=== PATIENT | female | born 1985 | race Two or more races ===

== ENCOUNTER 2022-12-13 14:00 | Emergency (ER) | payer SELFPAY ==
[2022-12-13] MEDS ORDERED: Sodium Chloride 0.9% 1,000 ML IV STA (15:29)
[2022-12-13] MEDS ORDERED: Ondansetron 4 MG/2 ML SDV IVPUSH STA (15:29)
[2022-12-13 16:21] LABS: CARBON DIOXIDE,CO2 25.3 mmol/L (21.0-32.0); POTASSIUM,K 4.2 mmol/L (3.5-5.1)
[2022-12-13] MEDS ORDERED: Ketorolac 30 MG/ML SDV IVPUSH STA (16:45)
[2022-12-13 17:37] LABS: CORONAVIRUS COVID-19 NAA NEGATIVE (NEGATIVE); INFLUENZA A NAA NEGATIVE (NEGATIVE); INFLUENZA B NAA NEGATIVE (NEGATIVE)
[2022-12-13] MEDS ORDERED: Morphine 2 MG/ML SYRINGE IVPUSH STA (18:21)
== END 2022-12-13 19:08 | disposition home or self-care (01) ==
LOC: MW.ED 14:00
DX: R10.11 Right upper quadrant pain (principal); M32.9 Systemic lupus erythematosus, unspecified; D72.819 Decreased white blood cell count, unspecified; F17.210 Nicotine dependence, cigarettes, uncomplicated; Z88.8 Allergy status to other drugs, medicaments and biological substances; Z20.822 Contact with and (suspected) exposure to COVID-19
CPT/HCPCS: 0240U; 36415; 71045; 76705; 80053; 81001; 83735; 85025; 85652; 86140; 96361; 96374; 96375; 99285; J1885; J2270; J2405; J7030; 99284

== ENCOUNTER 2023-01-07 23:04 | Emergency (ER) | payer SELFPAY ==
[2023-01-07] MEDS ORDERED: Aspirin 81 MG Tab.EC PO ONE (23:24)
[2023-01-07] MEDS ORDERED: Aspirin 81 MG Tab.Chew ONE (23:27)
[2023-01-07] MEDS ORDERED: Aspirin 81 MG Tab.Chew PO ONE (23:28)
[2023-01-07 23:49] LABS: CARBON DIOXIDE,CO2 22.8 mmol/L (21.0-32.0); POTASSIUM,K 3.7 mmol/L (3.5-5.1)
[2023-01-08 00:17] LABS: CORONAVIRUS COVID-19 NAA NEGATIVE (NEGATIVE); INFLUENZA A NAA NEGATIVE (NEGATIVE); INFLUENZA B NAA NEGATIVE (NEGATIVE)
[2023-01-08] MEDS ORDERED: Morphine 2 MG/ML SYRINGE IVPUSH ONE (00:22)
[2023-01-08] MEDS ORDERED: Morphine 4 MG/ML Syringe IVPUSH ONE (00:51)
[2023-01-08] MEDS ORDERED: Iopamidol 755 MG/ML 500 ML Multipack Bottle IVPUSH ONE (01:41)
== END 2023-01-08 03:04 | disposition home or self-care (01) ==
LOC: MW.ED 23:04
DX: R07.89 Other chest pain (principal); Z72.0 Tobacco use; Z88.8 Allergy status to other drugs, medicaments and biological substances; Z20.822 Contact with and (suspected) exposure to COVID-19
CPT/HCPCS: 0240U; 36415; 71045; 71275; 80053; 83690; 83880; 84484; 84703; 85025; 93005; 96374; 96375; 96376; 99285; A9270; J2270; J3360; Q9967; 93010; 99284

== ENCOUNTER 2023-05-21 01:01 | Emergency (ER) | payer SELFPAY | END 2023-05-21 03:17 | disposition home or self-care (01) | LOC: MW.ED 01:01 | DX: M32.9 Systemic lupus erythematosus, unspecified (principal); Z88.8 Allergy status to other drugs, medicaments and biological substances | CPT/HCPCS: 99283 ==

== ENCOUNTER 2023-07-21 09:37 | Emergency (ER) | payer SELFPAY ==
[2023-07-21] MEDS ORDERED: Sodium Chloride 0.9% 2.5 ML Syringe FLUSH PRN (10:10)
[2023-07-21] MEDS ORDERED: Sodium Chloride 0.9% 10 ML Syringe FLUSH PRN (10:10)
[2023-07-21 10:17] LABS: BASOPHILS PERCENT AUTO 0.2 % (0.0-1.5); EOSINOPHILS PERCENT AUTO 0.2 % (0.0-7.0); HEMATOCRIT 38.7 % (36.0-46.0); LYMPHOCYTES PERCENT AUTO 21.6 % (16.0-40.0); MEAN CORPUSCULAR HEMOGLOBIN 30.2 pg (27.0-32.0); MEAN CORPUSCULAR HGB CONC 33.6 g/dL (31.0-37.0); MEAN CORPUSCULAR VOLUME 89.8 fL (80.0-98.0); MONOCYTES ABSOLUTE AUTO 0.4 K/uL (0.0-0.8); MONOCYTES PERCENT AUTO 9.8 % (0.0-15.0); NEUTROPHILS ABSOLUTE AUTO 3.1 K/uL (1.4-5.7); NEUTROPHILS PERCENT AUTO 68.2 % (48.0-80.0); NRBC ABSOLUTE 0 K/uL; PLATELET COUNT,PLT 241 K/uL (150-400); RED BLOOD CELL COUNT 4.31 M/uL (4.30-5.90)
[2023-07-21] MEDS ORDERED: Sodium Chloride 0.9% 1,000 ML IV STA (10:21)
[2023-07-21] MEDS ORDERED: Ondansetron 4 MG/2 ML SDV IVPUSH STA (10:21)
[2023-07-21] MEDS ORDERED: Ketorolac 30 MG/ML SDV IVPUSH STA (10:21)
[2023-07-21] MEDS ORDERED: Acetaminophen 500 MG Tab PO STA (10:21)
[2023-07-21 10:32] LABS: A/G RATIO 0.9 (0.9-1.6); ALBUMIN 3.5 g/dL (3.4-5.0); BILIRUBIN TOTAL 0.3 mg/dL (0.2-1.0); CALCIUM 8.6 mg/dL (8.5-10.1); CARBON DIOXIDE,CO2 22.2 mmol/L (21.0-32.0); CREATININE 0.7 mg/dL (0.6-1.0); EST CRCL DRUG DOSING (CG) 79.04 mL/min; POTASSIUM,K 4.1 mmol/L (3.5-5.1); PROTEIN TOTAL,TP 7.3 g/dL (6.4-8.2)
[2023-07-21 10:36] LABS: MAGNESIUM 1.4 mg/dL (1.8-2.4)
[2023-07-21] MEDS ORDERED: Magnesium Sulfate/Water 2 GM in Premix Bag 1 BAG IV STA (10:41)
== END 2023-07-21 12:19 | disposition home or self-care (01) ==
LOC: MW.ED 09:37
DX: U07.1 COVID-19 (principal); E83.42 Hypomagnesemia; Z79.899 Other long term (current) drug therapy; Z88.8 Allergy status to other drugs, medicaments and biological substances
CPT/HCPCS: 36415; 71046; 80053; 83690; 83735; 84484; 85025; 86308; 87635; 87651; 93005; 96361; 96365; 96375; 99285; A9270; J1885; J2405; J3475; J3490; J7030; 93010; 99284; U0002

== ENCOUNTER 2023-10-19 14:05 | Emergency (ER) | payer SELFPAY ==
[2023-10-19] MEDS ORDERED: Sodium Chloride 0.9% 2.5 ML Syringe FLUSH PRN (15:01)
[2023-10-19] MEDS ORDERED: Ondansetron 4 MG/2 ML SDV IVPUSH STA (15:01)
[2023-10-19] MEDS ORDERED: Sodium Chloride 0.9% 1,000 ML IV STA ×2 (15:01→16:58)
[2023-10-19] MEDS ORDERED: Sodium Chloride 0.9% 10 ML Syringe FLUSH PRN (15:01)
[2023-10-19] MEDS ORDERED: Ketorolac 30 MG/ML SDV IVPUSH STA (15:01)
[2023-10-19 15:29] LABS: HEMATOCRIT 36.9 % (37.0-47.0); HEMOGLOBIN 12.7 g/dL (12.0-16.0); MEAN CORPUSCULAR HGB CONC 34.4 g/dL (32.0-36.0); MEAN CORPUSCULAR VOLUME 92.9 fL (83.0-99.0); MEAN PLATELET VOLUME 10.6 fL (9.4-12.3); PLATELET COUNT,PLT 189 K/uL (150-400); RED BLOOD CELL COUNT 3.97 M/uL (4.10-5.30); WHITE BLOOD CELL COUNT,WBC 2.91 K/uL (3.9-11.3)
[2023-10-19] MEDS ORDERED: Lidocaine 1% PF 2 ML SDV INJECT STA (15:53)
[2023-10-19] MEDS ORDERED: Bupivacaine 0.25% 10 ML SDV INJECT STA (15:53)
[2023-10-19 15:57] LABS: A/G RATIO 0.8 (0.9-1.6); ALBUMIN 3.5 g/dL (3.4-5.0); BILIRUBIN TOTAL 1.3 mg/dL (0.2-1.0); CALCIUM 8.2 mg/dL (8.5-10.1); CARBON DIOXIDE,CO2 19.5 mmol/L (21.0-32.0); CREATININE 0.8 mg/dL (0.6-1.0); EST CRCL DRUG DOSING (CG) 68.49 mL/min; POTASSIUM,K 3.5 mmol/L (3.5-5.1); PROTEIN TOTAL,TP 7.8 g/dL (6.4-8.2)
[2023-10-19 16:21] LABS: GLUCOSE,URINE NEGATIVE (NEGATIVE); KETONES,URINE TRACE mg/dL (NEGATIVE); LEUKOCYTE ESTERASE,URINE NEGATIVE (NEGATIVE); NITRITE,URINE POSITIVE (NEGATIVE); OCCULT BLOOD,URINE MODERATE (NEGATIVE); PH,URINE 5.5 (5.0-8.0); PROTEIN,URINE >=300 mg/dL (NEGATIVE)
[2023-10-19] MEDS ORDERED: Morphine 4 MG/ML Syringe IVPUSH STA ×2 (16:27→17:20)
[2023-10-19 16:35] LABS: EOSINOPHILS ABSOLUTE MAN 0.03 K/uL (0.00-0.45); EOSINOPHILS PERCENT MAN 1 % (0-6); LYMPHOCYTES PERCENT MAN 24 % (24-44); SEG NEUTROPHILS ABSOLUTE MAN 2.18 K/uL (1.80-7.70); SEG NEUTROPHILS PERCENT MAN 75 % (41-71)
[2023-10-19 16:40] LABS: APPEARANCE,URINE CLOUDY; BILIRUBIN,URINE MODERATE (NEGATIVE); COLOR,URINE AMBER
[2023-10-19 16:41] LABS: BACTERIA,URINE 2+ (NEGATIVE); EPITHELIAL CELLS,URINE FEW (NONE-FEW)
[2023-10-19 16:42] LABS: AMORPHOUS SEDIMENT,URINE MODERATE (NEGATIVE); FINE GRANULAR CASTS,URINE 15-20 (NEGATIVE)
[2023-10-19] MEDS ORDERED: Piperacillin/Tazobactam 3.375 GM in Sodium Chloride 0.9% 100 ML IV STA (16:42)
[2023-10-19 16:54] LABS: ACETAMINOPHEN 52.5 ug/mL
[2023-10-19 17:06] LABS: PERCENT FE SATURATION 28.67 % (20-55)
[2023-10-19] MEDS ORDERED: Iopamidol 755 MG/ML 200 ML Multipack Bottle IVPUSH STA (17:17)
[2023-10-19] MEDS ORDERED: Iopamidol 755 MG/ML 500 ML Multipack Bottle IVPUSH STA (17:21)
[2023-10-19 17:38] LABS: INR 1.32 (0.86-1.11)
[2023-10-19] MEDS ORDERED: WATER IV STA ×2 (17:39)
[2023-10-19] MEDS ORDERED: DEXTROSE 5% IV STA ×2 (17:39)
[2023-10-19] MEDS ORDERED: ACETYLCYSTEINE IV STA ×2 (17:39)
[2023-10-19 17:40] LABS: ETHANOL BLOOD MEDICAL < 3.0 mg/dL
[2023-10-19] MEDS ORDERED: FOMEPIZOLE IV STA ×2 (17:50→17:53)
[2023-10-19] MEDS ORDERED: SODIUM CHLORIDE 0.9% IV STA ×2 (17:50→17:53)
[2023-10-19] MEDS ORDERED: DEXTROSE 5% IV ONE ×6 (18:25→23:50)
[2023-10-19] MEDS ORDERED: ACETYLCYSTEINE IV ONE ×6 (18:25→23:50)
[2023-10-19] MEDS ORDERED: WATER IV ONE ×6 (18:25→23:50)
[2023-10-19] MEDS ORDERED: Ondansetron 4 MG/2 ML SDV IVPUSH ONE (19:45)
[2023-10-19] MEDS ORDERED: LORazepam 2 MG/ML SDV IVPUSH STA (20:42)
[2023-10-19] MEDS ORDERED: Prochlorperazine 10 MG/2 ML SDV IVPUSH STA (23:24)
[2023-10-19] MEDS ORDERED: diphenhydrAMINE 50 MG/ML SDV IVPUSH STA ×2 (23:24→23:26)
== END 2023-10-19 23:58 ==
LOC: MW.ED 14:05
DX: K04.7 Periapical abscess without sinus (principal); R74.01 Elevation of levels of liver transaminase levels; N30.01 Acute cystitis with hematuria; R80.9 Proteinuria, unspecified; R89.2 Abnormal level of other drugs, medicaments and biological substances in specimens from other organs, systems and tissues; Z88.8 Allergy status to other drugs, medicaments and biological substances
CPT/HCPCS: 36415; 74177; 76705; 80053; 80143; 80179; 80307; 81001; 83550; 83690; 83735; 84703; 85025; 85610; 85730; 86308; 86706; 86803; 87086; 87088; 87186; 87340; 96361; 96365; 96366; 96367; 96375; 96376; 99285; J0132; J0780; J1200; J1451; J1885; J2060; J2270; J2405; J2543; J3490; J7030; J7060; Q9967

== ENCOUNTER 2023-10-28 14:42 | Emergency (ER) | payer SELFPAY ==
[2023-10-28] MEDS ORDERED: Morphine 4 MG/ML Syringe IVPUSH ONE (14:58)
[2023-10-28] MEDS ORDERED: Sodium Chloride 0.9% 1,000 ML IV ONE (14:58)
[2023-10-28 15:30] LABS: BASOPHILS ABSOLUTE AUTO 0.01 K/uL (0.00-0.20); BASOPHILS PERCENT AUTO 0.3 % (0.0-1.0); EOSINOPHILS ABSOLUTE AUTO 0.03 K/uL (0.00-0.45); EOSINOPHILS PERCENT AUTO 0.9 % (0.0-6.0); HEMATOCRIT 36.7 % (37.0-47.0); HEMOGLOBIN 12.5 g/dL (12.0-16.0); IMMATURE GRAN ABSOLUTE AUTO 0.01 K/uL (0.00-0.05); IMMATURE GRAN PERCENT AUTO 0.3 % (0.0-0.4); LYMPHOCYTES ABSOLUTE AUTO 1.18 K/uL (1.00-4.80); LYMPHOCYTES PERCENT AUTO 36.6 % (24.0-44.0); MEAN CORPUSCULAR HEMOGLOBIN 32.3 pg (28.0-32.0); MEAN CORPUSCULAR HGB CONC 34.1 g/dL (32.0-36.0); MEAN CORPUSCULAR VOLUME 94.8 fL (83.0-99.0); MEAN PLATELET VOLUME 10.7 fL (9.4-12.3); MONOCYTES ABSOLUTE AUTO 0.29 K/uL (0.00-0.80); NEUTROPHILS PERCENT AUTO 52.9 % (41.0-71.0); PLATELET COUNT,PLT 224 K/uL (150-400); RED BLOOD CELL COUNT 3.87 M/uL (4.10-5.30); WHITE BLOOD CELL COUNT,WBC 3.22 K/uL (3.9-11.3)
[2023-10-28 15:39] LABS: INR 0.98 (0.86-1.11); PTT,PARTIAL THROMBOPLSTIN TIME 26.9 SEC (23.9-30.7)
[2023-10-28 15:54] LABS: A/G RATIO 0.8 (0.9-1.6); ALANINE AMINOTRANSFERASE,ALT 139 IU/L (14-63); ALBUMIN 3.2 g/dL (3.4-5.0); ALKALINE PHOSPHATASE 124 U/L (46-116); ASPARTATE AMNIOTRANSFERASE,AST 56 IU/L (15-37); BILIRUBIN TOTAL 0.6 mg/dL (0.2-1.0); BLOOD UREA NITROGEN,BUN 3 mg/dL (7.0-18.0); CARBON DIOXIDE,CO2 24.1 mmol/L (21.0-32.0); CHLORIDE,CL 105 mmol/L (98-107); CREATININE 0.7 mg/dL (0.6-1.0); EST CRCL DRUG DOSING (CG) 78.27 mL/min; GLUCOSE RANDOM 88 mg/dL (74-106); LIPASE 26 U/L (16-77); MAGNESIUM 1.7 mg/dL (1.8-2.4); PROTEIN TOTAL,TP 7.3 g/dL (6.4-8.2); SODIUM,NA 140 mmol/L (136-145)
[2023-10-28 15:56] LABS: ESTIMATED GFR 113 mL/min (>60); ETHANOL BLOOD MEDICAL < 3.0 mg/dL
== END 2023-10-28 16:11 | disposition home or self-care (01) ==
LOC: MW.ED 14:42
DX: R10.11 Right upper quadrant pain (principal); F17.210 Nicotine dependence, cigarettes, uncomplicated; Z88.8 Allergy status to other drugs, medicaments and biological substances
CPT/HCPCS: 36415; 80053; 80307; 83690; 83735; 84703; 85025; 85610; 85730; 96361; 96374; 99284; J2270; J7030

== ENCOUNTER 2023-11-12 10:23 | Emergency (ER) | payer SELFPAY ==
[2023-11-12 10:46] LABS: BASOPHILS ABSOLUTE AUTO 0.01 K/uL (0.00-0.20); BASOPHILS PERCENT AUTO 0.3 % (0.0-1.0); EOSINOPHILS ABSOLUTE AUTO 0.04 K/uL (0.00-0.45); HEMATOCRIT 39.3 % (37.0-47.0); HEMOGLOBIN 13.4 g/dL (12.0-16.0); IMMATURE GRAN ABSOLUTE AUTO 0.01 K/uL (0.00-0.05); IMMATURE GRAN PERCENT AUTO 0.3 % (0.0-0.4); LYMPHOCYTES ABSOLUTE AUTO 1.14 K/uL (1.00-4.80); MEAN CORPUSCULAR HEMOGLOBIN 31.2 pg (28.0-32.0); MEAN CORPUSCULAR HGB CONC 34.1 g/dL (32.0-36.0); MEAN CORPUSCULAR VOLUME 91.6 fL (83.0-99.0); MEAN PLATELET VOLUME 10.9 fL (9.4-12.3); MONOCYTES ABSOLUTE AUTO 0.24 K/uL (0.00-0.80); MONOCYTES PERCENT AUTO 6.1 % (0.0-8.0); NEUTROPHILS ABSOLUTE AUTO 2.49 K/uL (1.80-7.70); NEUTROPHILS PERCENT AUTO 63.3 % (41.0-71.0); PLATELET COUNT,PLT 207 K/uL (150-400); RED BLOOD CELL COUNT 4.29 M/uL (4.10-5.30); WHITE BLOOD CELL COUNT,WBC 3.93 K/uL (3.9-11.3)
[2023-11-12] MEDS ORDERED: Ondansetron 4 MG Tab.DIS PO ONE (10:53)
[2023-11-12] MEDS ORDERED: oxyCODONE 5 MG Tab PO ONE (10:53)
[2023-11-12 11:01] LABS: INR 0.98 (0.86-1.11)
[2023-11-12 11:10] LABS: BILIRUBIN,URINE NEGATIVE (NEGATIVE); COLOR,URINE YELLOW; GLUCOSE,URINE NEGATIVE (NEGATIVE); KETONES,URINE NEGATIVE (NEGATIVE); LEUKOCYTE ESTERASE,URINE NEGATIVE (NEGATIVE); NITRITE,URINE POSITIVE (NEGATIVE); OCCULT BLOOD,URINE NEGATIVE (NEGATIVE); PROTEIN,URINE 100 mg/dL (NEGATIVE); UROBILINOGEN,URINE 0.2 EU/dL (<2.0)
[2023-11-12 11:14] LABS: APPEARANCE,URINE SLT CLOUDY
[2023-11-12 11:22] LABS: AMPHETAMINES SCREEN, URINE NEGATIVE (CUTOFF=500); BARBITURATE SCREEN,URINE NEGATIVE (CUTOFF=200); BENZODIAZEPINES SCREEN,URINE NEGATIVE (CUTOFF=150); BUPRENORPHINE SCREEN,URINE NEGATIVE (CUTOFF=10); METHADONE SCREEN, URINE NEGATIVE (CUTOFF=200); METHAMPHETAMINES SCREEN, URINE NEGATIVE (CUTOFF=500); OXYCODONE SCREEN,URINE NEGATIVE (CUT0FF=100); PCP SCREEN,URINE NEGATIVE (CUTOFF=25); RBC,URINE 0-2 (0-2/HPF); THC SCREEN,URINE 20 NG/ML PRESUMPTIVE POSITIVE (CUTOFF=50)
[2023-11-12 11:23] LABS: BACTERIA,URINE FEW (NEGATIVE); EPITHELIAL CELLS,URINE FEW (NONE-FEW)
[2023-11-12 11:40] LABS: A/G RATIO 0.8 (0.9-1.6); ACETAMINOPHEN <2.0 ug/mL; ALANINE AMINOTRANSFERASE,ALT 32 IU/L (14-63); ALBUMIN 3.5 g/dL (3.4-5.0); ALKALINE PHOSPHATASE 95 U/L (46-116); ASPARTATE AMNIOTRANSFERASE,AST 34 IU/L (15-37); BILIRUBIN TOTAL 0.8 mg/dL (0.2-1.0); BLOOD UREA NITROGEN,BUN 10 mg/dL (7.0-18.0); CALCIUM 8.1 mg/dL (8.5-10.1); CARBON DIOXIDE,CO2 21.9 mmol/L (21.0-32.0); CHLORIDE,CL 105 mmol/L (98-107); CREATININE 0.8 mg/dL (0.6-1.0); EST CRCL DRUG DOSING (CG) 68.49 mL/min; GLUCOSE RANDOM 90 mg/dL (74-106); POTASSIUM,K 3.4 mmol/L (3.5-5.1); PROTEIN TOTAL,TP 7.9 g/dL (6.4-8.2); SALICYLATE 1.5 mg/dL (0.0-20.0); SODIUM,NA 139 mmol/L (136-145)
[2023-11-12 11:49] LABS: ESTIMATED GFR 97 mL/min (>60)
== END 2023-11-12 12:07 | disposition home or self-care (01) ==
LOC: MW.ED 10:23
DX: N39.0 Urinary tract infection, site not specified (principal); Z76.0 Encounter for issue of repeat prescription; Z88.8 Allergy status to other drugs, medicaments and biological substances
CPT/HCPCS: 36415; 80053; 80143; 80179; 80305; 81001; 83690; 85025; 85610; 87086; 87088; 87186; 99284; A9270; 99283

== ENCOUNTER 2024-07-12 17:58 | Emergency (ER) | payer MEDICAID ==
[2024-07-12] MEDS: Prochlorperazine 10 MG Tab PO ONE (18:29)
[2024-07-12] MEDS: Ketorolac 60 MG/2 ML SDV IM ONE (18:30)
[2024-07-12] MEDS: Albuterol/Ipratropium 3.0-0.5 MG/3 ML Neb Soln NEB ONE (18:42)
[2024-07-12 18:55] LABS: CORONAVIRUS COVID-19 NAA NEGATIVE (NEGATIVE); INFLUENZA A NAA NEGATIVE (NEGATIVE); INFLUENZA B NAA NEGATIVE (NEGATIVE)
[2024-07-12] MEDS: droPERidol 5 MG/2 ML SDV IVPUSH ONE (19:24)
[2024-07-12] MEDS: Morphine 4 MG/ML Syringe IVPUSH ONE (19:24)
[2024-07-12] MEDS: Sodium Chloride 0.9% 10 ML Syringe FLUSH PRN (19:24)
[2024-07-12] MEDS: Sodium Chloride 0.9% 2.5 ML Syringe FLUSH PRN (19:24)
[2024-07-12] MEDS: Sodium Chloride 0.9% 1,000 ML IV ONE (19:24)
[2024-07-12] MEDS: Ondansetron 4 MG/2 ML SDV IVPUSH ONE (19:25)
[2024-07-12] MEDS: Famotidine 20 MG/2 ML SDV IVPUSH ONE (19:25)
== END 2024-07-12 21:00 | disposition home or self-care (01) ==
LOC: MW.ED 17:58
DX: J18.9 Pneumonia, unspecified organism (principal); F17.210 Nicotine dependence, cigarettes, uncomplicated; Z79.899 Other long term (current) drug therapy; Z88.8 Allergy status to other drugs, medicaments and biological substances
CPT/HCPCS: 0240U; 71045; 96361; 96372; 96374; 96375; 99285; J1790; J1885; J2270; J3490; J7030; Q0164; 99283; J7620-GY

== ENCOUNTER 2025-01-26 12:09 | Emergency (ER) | payer MEDICAID | END 2025-01-26 14:35 | disposition home or self-care (01) | LOC: MW.ED 12:09 | DX: J40 Bronchitis, not specified as acute or chronic (principal); H66.91 Otitis media, unspecified, right ear; F17.210 Nicotine dependence, cigarettes, uncomplicated; Z88.8 Allergy status to other drugs, medicaments and biological substances; Z79.51 Long term (current) use of inhaled steroids; Z79.899 Other long term (current) drug therapy | CPT/HCPCS: 71045; 71045-26; 87428-QW; 99283; 99285 ==

== ENCOUNTER 2025-06-08 12:14 | Emergency (ER) | payer MEDICAID ==
[2025-06-08] MEDS: Ketorolac 30 MG/ML SDV IVPUSH ONE (12:54)
[2025-06-08 13:03] LABS: BASOPHILS ABSOLUTE AUTO 0.01 K/uL (0.00-0.20); BASOPHILS PERCENT AUTO 0.2 % (0.0-1.0); EOSINOPHILS ABSOLUTE AUTO 0.02 K/uL (0.00-0.45); EOSINOPHILS PERCENT AUTO 0.4 % (0.0-6.0); IMMATURE GRAN ABSOLUTE AUTO 0.01 K/uL (0.00-0.05); IMMATURE GRAN PERCENT AUTO 0.2 % (0.0-0.4); LYMPHOCYTES ABSOLUTE AUTO 1.16 K/uL (1.00-4.80); LYMPHOCYTES PERCENT AUTO 21.4 % (24.0-44.0); MEAN PLATELET VOLUME 11.0 fL (9.4-12.3); MONOCYTES ABSOLUTE AUTO 0.28 K/uL (0.00-0.80); MONOCYTES PERCENT AUTO 5.2 % (0.0-8.0); NEUTROPHILS ABSOLUTE AUTO 3.93 K/uL (1.80-7.70); NEUTROPHILS PERCENT AUTO 72.6 % (41.0-71.0); NRBC ABSOLUTE 0.00 K/uL (0.00-0.02); NRBC PERCENT 0.0 /100WBC (0.0-0.2); PLATELET COUNT,PLT 161 K/uL (150-400); RED BLOOD CELL COUNT 4.00 M/uL (4.10-5.30); WHITE BLOOD CELL COUNT,WBC 5.41 K/uL (3.9-11.3)
[2025-06-08 13:31] LABS: APPEARANCE,URINE SLT CLOUDY; GLUCOSE,URINE NEGATIVE (NEGATIVE); OCCULT BLOOD,URINE NEGATIVE (NEGATIVE)
[2025-06-08 13:33] LABS: A/G RATIO 0.8 (0.9-1.6); ALANINE AMINOTRANSFERASE,ALT 72.0 IU/L (14-63); ASPARTATE AMNIOTRANSFERASE,AST 119.0 IU/L (15-37); BILIRUBIN TOTAL 1.4 mg/dL (0.2-1.0); BLOOD UREA NITROGEN,BUN 8.0 mg/dL (7.0-18.0); CARBON DIOXIDE,CO2 21.6 mmol/L (21.0-32.0); CHLORIDE,CL 100.0 mmol/L (98-107); CREATININE 0.6 mg/dL (0.6-1.0); EST CRCL DRUG DOSING (CG) 90.42 mL/min; GLUCOSE RANDOM 87.0 mg/dL (74-106); POTASSIUM,K 3.3 mmol/L (3.5-5.1); PROTEIN TOTAL,TP 7.9 g/dL (6.4-8.2); SODIUM,NA 138.0 mmol/L (136-145)
[2025-06-08 13:37] LABS: ESTIMATED GFR 117.0 mL/min (>60)
[2025-06-08 13:47] LABS: EPITHELIAL CELLS,URINE OCCASIONAL (NONE-FEW)
[2025-06-08] MEDS: Iopamidol 755 MG/ML 500 ML Multipack Bottle IVPUSH STA (14:00)
== END 2025-06-08 15:13 | disposition home or self-care (01) ==
LOC: MW.ED 12:14
DX: N39.0 Urinary tract infection, site not specified (principal); Z75.3 Unavailability and inaccessibility of health-care facilities; Z88.8 Allergy status to other drugs, medicaments and biological substances
CPT/HCPCS: 36415; 71045; 74177; 80053; 81001; 81025; 83690; 85025; 87086; 96361; 96374; 99284; A9270; J1885; J7030; Q9967; 87088; 87186; 99283

== ENCOUNTER 2025-09-05 08:59 | Emergency (ER) | payer MEDICAID ==
[2025-09-05] MEDS ORDERED: Sodium Chloride 0.9% 2.5 ML Syringe FLUSH PRN (09:30)
[2025-09-05] MEDS ORDERED: Sodium Chloride 0.9% 10 ML Syringe FLUSH PRN (09:30)
[2025-09-05] MEDS: Prochlorperazine 10 MG/2 ML SDV IVPUSH ONE (10:01)
[2025-09-05] MEDS: Ketorolac 30 MG/ML SDV IVPUSH ONE (10:01)
[2025-09-05 10:12] LABS: BASOPHILS ABSOLUTE AUTO 0.01 K/uL (0.00-0.20); BASOPHILS PERCENT AUTO 0.2 % (0.0-1.0); EOSINOPHILS ABSOLUTE AUTO 0.08 K/uL (0.00-0.45); EOSINOPHILS PERCENT AUTO 1.2 % (0.0-6.0); IMMATURE GRAN ABSOLUTE AUTO 0.02 K/uL (0.00-0.05); IMMATURE GRAN PERCENT AUTO 0.3 % (0.0-0.4); LYMPHOCYTES ABSOLUTE AUTO 1.03 K/uL (1.00-4.80); LYMPHOCYTES PERCENT AUTO 15.7 % (24.0-44.0); MEAN PLATELET VOLUME 10.6 fL (9.4-12.3); MONOCYTES ABSOLUTE AUTO 0.26 K/uL (0.00-0.80); MONOCYTES PERCENT AUTO 4.0 % (0.0-8.0); NEUTROPHILS ABSOLUTE AUTO 5.17 K/uL (1.80-7.70); NEUTROPHILS PERCENT AUTO 78.6 % (41.0-71.0); NRBC ABSOLUTE 0.00 K/uL (0.00-0.02); NRBC PERCENT 0.0 /100WBC (0.0-0.2); PLATELET COUNT,PLT 180 K/uL (150-400); RED BLOOD CELL COUNT 4.62 M/uL (4.10-5.30); WHITE BLOOD CELL COUNT,WBC 6.57 K/uL (3.9-11.3)
[2025-09-05] MEDS: Iopamidol 755 MG/ML 500 ML Multipack Bottle IVPUSH STA (10:18)
[2025-09-05 10:36] LABS: A/G RATIO 0.8 (0.9-1.6); ALANINE AMINOTRANSFERASE,ALT 121.0 IU/L (14-63); ASPARTATE AMNIOTRANSFERASE,AST 132.0 IU/L (15-37); BILIRUBIN TOTAL 1.1 mg/dL (0.2-1.0); BLOOD UREA NITROGEN,BUN 13.0 mg/dL (7.0-18.0); CARBON DIOXIDE,CO2 12.3 mmol/L (21.0-32.0); CHLORIDE,CL 100.0 mmol/L (98-107); CREATININE 0.8 mg/dL (0.6-1.0); EST CRCL DRUG DOSING (CG) 67.14 mL/min; GLUCOSE RANDOM 92.0 mg/dL (74-106); POTASSIUM,K 3.8 mmol/L (3.5-5.1); PROTEIN TOTAL,TP 8.9 g/dL (6.4-8.2); SODIUM,NA 135.0 mmol/L (136-145)
[2025-09-05 10:41] LABS: ESTIMATED GFR 95.0 mL/min (>60)
[2025-09-05 11:45] LABS: GLUCOSE,URINE NEGATIVE (NEGATIVE); OCCULT BLOOD,URINE TRACE-INTACT (NEGATIVE)
[2025-09-05 11:49] LABS: APPEARANCE,URINE HAZY
[2025-09-05 11:55] LABS: AMPHETAMINES SCREEN, URINE PRESUMPTIVE POSITIVE (CUTOFF=500); BUPRENORPHINE SCREEN,URINE NEGATIVE (CUTOFF=10); METHADONE SCREEN, URINE NEGATIVE (CUTOFF=200); METHAMPHETAMINES SCREEN, URINE PRESUMPTIVE POSITIVE (CUTOFF=500); OXYCODONE SCREEN,URINE NEGATIVE (CUT0FF=100); PCP SCREEN,URINE NEGATIVE (CUTOFF=25); THC SCREEN,URINE 20 NG/ML PRESUMPTIVE POSITIVE (CUTOFF=50)
[2025-09-05 11:56] LABS: EPITHELIAL CELLS,URINE FEW (NONE-FEW)
[2025-09-05] MEDS: Ondansetron 4 MG/2 ML SDV IVPUSH ONE ×2 (12:34→14:44)
== END 2025-09-05 15:15 | disposition home or self-care (01) ==
LOC: MW.ED 08:59
DX: K85.90 Acute pancreatitis without necrosis or infection, unspecified (principal); Z88.8 Allergy status to other drugs, medicaments and biological substances
CPT/HCPCS: 36415; 70450; 74177; 74181; 76705; 80053; 80305; 80307; 81001; 83690; 84703; 85025; 96361; 96374; 96375; 96376; 99284; J0780; J1885; J2270; J2405; J7030; Q9967; 99283

== ENCOUNTER 2025-09-15 22:18 | Emergency (ER) | payer MEDICAID ==
[2025-09-15] MEDS: Lidocaine 2% Viscous Solution 15 ML UD PO ONE (23:17)
[2025-09-15] MEDS: Benzocaine 20% Topical Spray UD MUCMEM ONE (23:17)
== END 2025-09-16 00:29 | disposition home or self-care (01) ==
LOC: MW.ED 22:18
DX: K02.9 Dental caries, unspecified (principal); Z88.8 Allergy status to other drugs, medicaments and biological substances; Z79.899 Other long term (current) drug therapy
CPT/HCPCS: 99282; A9270; J3490; 99283